=== PATIENT | female | born 1980 | race Caucasian/White ===

== ENCOUNTER 2019-09-02 00:09 | Emergency (ER) | payer MEDICAID ==
[~2019-09-02] VITALS: Ht 177.8 cm; Wt 129.0 kg
[~2019-09-02 00:09] MED LIST: BUSP30TA3 PO; ESCI20TA45 PO; GABA-532 PO; LAMO200T10; TRAZ-256
[2019-09-02] MEDS ORDERED: diphenhydrAMINE 50 mg/ml inj IM ONE (00:25)
[2019-09-02] MEDS ORDERED: haloperidol lactate 5mg/ml inj IM ONE (00:25)
[2019-09-02] MEDS ORDERED: ketorolac trometh. 30mg/ml inj. IM ONE (00:25)
[2019-09-02] MEDS ORDERED: LORazepam 1 MG tablet PO ONE (00:25)
[2019-09-02] MEDS ORDERED: cloNIDine 0.1 mg tablet PO ONE (00:25)
--- NOTE | 2019-09-02 01:38 | NUR ---
PT STATES "I FEEL SO MUCH BETTER." SHE REPORTS PAIN 7/10 WHICH SHE STATES IS TOLERABLE AND WANTS TO GO HOME AND SLEEP.
[2019-09-02 01:46] VITALS: BP 133/93
== END 2019-09-02 01:51 | disposition home or self-care (01) ==
LOC: ER 00:10
DX: G43.909 Migraine, unspecified, not intractable, without status migrainosus (principal); F12.90 Cannabis use, unspecified, uncomplicated; F41.9 Anxiety disorder, unspecified; F32.9 Major depressive disorder, single episode, unspecified; F17.210 Nicotine dependence, cigarettes, uncomplicated; Z79.899 Other long term (current) drug therapy
CPT/HCPCS: 96372; 99283; J1200; J1630; J1885

== ENCOUNTER 2024-04-01 12:51 | Emergency (ER) | payer MEDICAID ==
[~2024-04-01] VITALS: Ht 177.8 cm; Wt 115.9 kg
[~2024-04-01 12:51] MED LIST changes: +ESCI20TA39 PO; -ESCI20TA45 PO
[2024-04-01 13:40] LABS: BASOPHILS % (AUTO) 0.3 % (0-1); EOSINOPHILS % (AUTO) 0 % (0-6); HEMATOCRIT 43.4 % (35.0-45.0); HEMOGLOBIN 14.4 g/dl (12.0-16.0); LYMPHOCYTES # (AUTO) 0.8 X10'3 (1.1-4.8); LYMPHOCYTES % (AUTO) 6.4 % (21-51); MEAN CORPUSCULAR HEMOGLOBIN 30.1 PG (27.0-31.0); MEAN CORPUSCULAR HGB CONC 33.1 g/dL (33.0-36.5); MEAN CORPUSCULAR VOLUME 90.9 FL (78-98); MEAN PLATELET VOLUME 8.1 FL (7.4-10.4); MONOCYTES # (AUTO) 0.3 X10'3 (0-0.9); MONOCYTES % (AUTO) 2.6 % (2-12); NEUTROPHILS # (AUTO) 11.1 X10'3 (1.8-7.7); NEUTROPHILS % (AUTO) 90.7 % (42-75); PLATELET COUNT 277 X10'3 (140-440); RED BLOOD COUNT 4.77 X10'6 (4.20-5.60); RED CELL DISTRIBUTION WIDTH 12.9 % (11.5-14.5); WHITE BLOOD COUNT 12.2 X10'3 (4.5-11.0)
[2024-04-01] MEDS: ketorolac trometh 15mg/ml vial 15 MG/ML ML IV ONE (13:48)
[2024-04-01] MEDS: diphenhydrAMINE 50 mg/ml inj IV ONE (13:51)
[2024-04-01] MEDS: proCHLORperazine 10 MG/2 ml inj IV ONE (13:52)
[2024-04-01 13:54] LABS: ALANINE AMINOTRANSFERASE 27 U/L (12-78); ALBUMIN 4.2 G/DL (3.4-5.0); ALBUMIN/GLOBULIN RATIO 1.2 (1.1-1.5); ALKALINE PHOSPHATASE 60 IU/L (46-116); ANION GAP 17 (8-16); ASPARTATE AMINO TRANSFERASE 17 U/L (10-37); BILIRUBIN,TOTAL 0.7 MG/DL (0.1-1.0); BLOOD UREA NITROGEN 10 MG/DL (7-18); BUN/CREATININE RATIO 9.6 (10.0-20.0); CALCIUM 9.2 MG/DL (8.5-10.1); CHLORIDE 105 MMOL/L (99-107); CREATININE 1.04 MG/DL (0.40-0.90); GLUCOSE 168 MG/DL (70-104); LIPASE 22 U/L (16-77); POTASSIUM 3.5 MMOL/L (3.5-5.1); SODIUM 141 MMOL/L (135-145); TOTAL CARBON DIOXIDE 19.1 MMOL/L (24-32); TOTAL PROTEIN 7.7 G/DL (6.4-8.2); eCRCL 75 ML/MIN; eGFR 58 ML/MIN
[2024-04-01] MEDS: normal saline 1000ml 1,000 ML IV ONE ×2 (13:54→14:05)
[2024-04-01 15:32] LABS: URINE HCG NEGATIVE (NEG)
[2024-04-01 15:33] LABS: BILIRUBIN,URINE NEGATIVE (Neg); CLARITY,URINE SLIGHTLY CLOUDY (Clear); COLOR,URINE YELLOW (Yellow); GLUCOSE, URINE NEGATIVE (Neg); KETONES,URINE >=80 mg/dl (Neg); LEUKOCYTE ESTERASE ,URINE NEGATIVE (Neg); NITRITES, URINE NEGATIVE (Neg); OCCULT BLOOD,URINE TRACE-INTACT (Neg); PH,URINE 6.5 (4.8-8.0); PROTEIN,URINE NEGATIVE (Neg); UROBILINOGEN,URINE 0.2 E.U/dL (0.2-1.0)
[2024-04-01 15:36] LABS: UA COLLECTION TYPE CLN CATCH MIDSTREAM
[2024-04-01 15:38] LABS: BACTERIA,URINE 1+ /HPF (Neg); MUCUS STRANDS MODERATE /LPF (Neg); RBC,URINE 0-2 /HPF (0-2); SQUAMOUS EPITHELIAL CELL,UR MANY /LPF (FEW); WBC,URINE 0-4 /HPF (0-4)
[2024-04-01] MEDS ORDERED: ONDA-245 PO (16:01)
[2024-04-01 16:07] VITALS: BP 116/62; PULSE 82; RESP 18; TEMP 98.5; O2SAT 99
== END 2024-04-01 16:12 | disposition home or self-care (01) ==
LOC: ER 12:52
DX: K52.89 Other specified noninfective gastroenteritis and colitis (principal); G43.909 Migraine, unspecified, not intractable, without status migrainosus; F41.9 Anxiety disorder, unspecified; F32.A Depression, unspecified; F12.90 Cannabis use, unspecified, uncomplicated; Z79.899 Other long term (current) drug therapy; Z98.890 Other specified postprocedural states; Z85.89 Personal history of malignant neoplasm of other organs and systems
CPT/HCPCS: 36415; 80053; 81001; 81025; 83690; 85025; 96361; 96374; 96375; 99284; J0780; J1200; J1885; J7030